=== PATIENT | female | born 1985 | race American Indian/Alaskan Native ===

== ENCOUNTER 2017-05-11 18:46 | Emergency (ER) | payer MEDICAID ==
[2017-05-11 21:21] LABS: Bilirubin,Urine NEG (Negative); Blood,Urine NEG (Negative); Ketones,Urine 20 mg/dL (Negative); Leukocyte Esterase,Urine NEG (Negative); Mucus,Urine FEW /HPF; Nitrite,Urine NEG (Negative); Protein,Urine <15 mg/dL mg/dL (Negative); Urobilinogen,Urine < 2.0 mg/dL (<2.0)
[2017-05-12] MEDS ORDERED: XYLOCAINE 1% MPF 5 mL INFILTRATI ONE (04:08)
[2017-05-12] MEDS ORDERED: ZITHROMAX PO ONE (04:08)
[2017-05-12] MEDS ORDERED: ROCEPHIN IM ONE (04:08)
--- NOTE | 2017-05-12 04:13 | Emergency Department Report ---
ED Female HPI - General Chief complaint: Urogenital-Female Stated complaint: ABD PAIN Time Seen by Provider: 05/12/17 04:01 Source: patient Mode of arrival: Ambulatory Limitations: No Limitations - History of Present Illness Initial comments: Patient is a 32-year-old female here with complaint of 2 days of dysuria and vaginal discharge. Patient feels that her boyfriend may have given her something. She does not elaborate on this. No fevers chills nausea vomiting. Last menstrual period was in February however she had a miscarriage last month. MD Complaint: vaginal discharge, dysuria, possible STD -: Gradual Location: suprapubic Radiation: non-radiating Severity: mild Quality: cramping Improves with: none Worsens with: none Are you Now?: No Associated Symptoms: vaginal discharge, dysuria - Related Data Previous Rx's Medication Instructions Recorded Last Taken Type metroNIDAZOLE [Flagyl] 500 mg PO Q8HR #9 tablet 05/12/17 Unknown Rx Allergies Allergy/AdvReac Type Severity Reaction Status Date / Time No Known Allergies Allergy Verified 05/11/17 19:12 ED Review of Systems ROS: Stated complaint: ABD PAIN Other details as noted in HPI Constitutional: denies: see HPI, chills Gastrointestinal: denies: abdominal pain, nausea, vomiting Genitourinary: as per HPI Musculoskeletal: denies: back pain Psychiatric: denies: anxiety, depression Hematological/Lymphatic: denies: easy bleeding ED Past Medical Hx - Past Medical History Hx Psychiatric Treatment: Yes (ANXIETY /BIPOLAR / SCHIZOPHRENIA) Hx Asthma: Yes Additional medical history: Immunizations are up-to-date, last tetanus shot was 2 years previous. - Surgical History Additional Surgical History: . D & C. LAPAROSCOPY - Family History Family history: no significant - Social History Smoking Status: Current Every Day Smoker Substance Use Type: Prescribed - Medications Home Medications: Home Medications Medication Instructions Recorded Confirmed Last Taken Type metroNIDAZOLE [Flagyl] 500 mg PO Q8HR #9 tablet 05/12/17 Unknown Rx ED Physical Exam - General Limitations: No Limitations General appearance: alert, in no apparent distress - Head Head exam: Present: atraumatic, normocephalic - GI/Abdominal GI/Abdominal exam: Present: soft. Absent: distended, tenderness, guarding, rebound - External exam: Present: other (exam deferred due to patient request) ED Course Vital Signs 05/11/17 05/12/17 19:06 01:53 Temperature 98.6 F Pulse Rate 99 H 96 H Respiratory 18 20 Rate Blood Pressure 121/63 125/74 O2 Sat by Pulse 100 100 Oximetry ED Medical Decision Making - Lab Data Laboratory Results - last 24 hr 05/11/17 05/11/17 20:06 20:53 HCG, Qual Negative Urine Color Yellow Urine Turbidity Clear Urine pH 5.0 Ur Specific [place] 1.023 Urine Protein <15 mg/dl Urine Glucose (UA) Neg Urine Ketones 20 Urine Blood Neg Urine Nitrite Neg Urine Bilirubin Neg Urine Urobilinogen < 2.0 Ur Leukocyte Esterase Neg Urine WBC (Auto) 3.0 Urine RBC (Auto) 3.0 Urine Mucus Few Temp Pulse Resp BP Pulse Ox 98.6 F 96 H 20 125/74 100 05/11/17 19:06 05/12/17 01:53 05/12/17 01:53 05/12/17 01:53 05/12/17 01:53 - Medical Decision Making Patient is a 32-year-old female here with concern for STD. Patient has vaginal discharge and some dysuria. She is not and her UA shows 3 whites in her urine do not plan to treat for UTI. I discussed a pelvic exam with the patient however she would like to be treated for STD and discharged. Given her symptoms and her risk of going ahead and treat her. Portions of this chart were dictated with dictation software. There may be dictation errors contained within this note. Critical care attestation.: If time is entered above; I have spent that time in minutes in the direct care of this critically ill patient, excluding procedure time. ED Disposition Clinical Impression: Vaginal discharge, Possible exposure to STD Disposition: DC-01 TO HOME OR SELFCARE Is pt being admited?: No Condition: Stable Instructions: Sexually Transmitted Diseases (ED) Additional Instructions: Please disclose [place] in the main treatment for an STD. They should be treated for an STD too. Prescriptions: metroNIDAZOLE [Flagyl] 500 mg PO Q8HR #9 tablet Referrals: PRIMARY CARE, [Primary Care Provider] - 3-5 Days
[2017-05-12 04:56] VITALS: BP 124/62
== END 2017-05-12 04:40 | disposition home or self-care (01) ==
LOC: ED 18:46
DX: N89.8 Other specified noninflammatory disorders of vagina (principal); J45.909 Unspecified asthma, uncomplicated; F31.9 Bipolar disorder, unspecified; F20.9 Schizophrenia, unspecified; F17.200 Nicotine dependence, unspecified, uncomplicated
CPT/HCPCS: 36415; 81001; 84703; 96372; 99283; J0696

== ENCOUNTER 2018-03-13 20:57 | Emergency (ER) | payer MEDICAID ==
[2018-03-13 21:26] VITALS: BP 111/65
[2018-03-13 21:46] LABS: Hematocrit 44.4 % (30.3-42.9); Hemoglobin 14.9 gm/dl (10.1-14.3); Mean Corpuscular HGB Conc 34 % (30-34); Mean Corpuscular Hemoglobin 26 pg (28-32); Mean Corpuscular Volume 78 fl (79-97); Platelet Count 238 K/mm3 (140-440); Red Blood Count 5.73 M/mm3 (3.65-5.03); Red Cell Distribution Width 15.3 % (13.2-15.2)
[2018-03-13 22:36] LABS: Alanine Aminotransferase 19 units/L (7-56); Albumin 3.8 g/dL (3.9-5); BUN/Creatinine Ratio 8; Blood Urea Nitrogen 4 mg/dL (7-17); Hemolysis Index 10
[2018-03-13 22:38] LABS: Free T4 (Free Thyroxine) 0.54 ng/dL (0.76-1.46)
[2018-03-13 22:49] LABS: Creatine Kinase MB < 1.0 ng/mL (0.0-4.0)
[2018-03-14 00:44] LABS: Bilirubin,Urine NEG (Negative); Blood,Urine NEG (Negative); Color,Urine Yellow (Yellow); Protein,Urine <15 mg/dL mg/dL (Negative); Urobilinogen,Urine < 2.0 mg/dL (<2.0)
[2018-03-14 00:50] LABS: HCG Qualitative,Urine Negative (Negative); RBC,Urine < 1.0 /HPF (0.0-6.0)
== END 2018-03-13 21:35 ==
LOC: ED 20:57
DX: F41.9 Anxiety disorder, unspecified (principal); R07.0 Pain in throat; Z53.21 Procedure and treatment not carried out due to patient leaving prior to being seen by health care provider
CPT/HCPCS: 36415; 80053; 81001; 81025; 82550; 82553; 84439; 84443; 84484; 85027; 93005; 93010